=== PATIENT | male | born 1945 | race Caucasian/White ===

== ENCOUNTER 2018-02-15 12:42 | Emergency (ER) | payer MEDICARE ==
[2018-02-15 12:53] VITALS: PULSE 63; RESP 20; TEMP 97.7
[2018-02-15] MEDS ORDERED: LORazepam 1 MG TAB PO STA (13:08)
--- NOTE | 2018-02-15 13:13 | ED ---
General Adult HPI - General Chief complaint: Recheck/Abnormal Lab/Rx Stated complaint: elevated BP Source: patient Mode of arrival: ambulatory Limitations: no limitations - History of Present Illness Initial comments: Dictation was produced using [employer] dictation software. please excuse any grammatical, word or spelling errors. Chief Complaint: 72-year-old male with past medical history of atrial fibrillation status post ablation, diabetes mellitus and hypertension since with elevated blood pressure. History of Present Illness: 72-year-old male presents with elevated blood pressure. Patient states he was checking his blood pressure with his personal machine when it was elevated with systolic of 190s. He then went to the [facility] and check the he was sent in here by the [facility] medical staff to be evaluated. Patient has past medical history of hypertension. He takes lisinopril and metoprolol. She denies any shortness of breath. Denies any headache. Denies any pain complaints. Denies any neurologic symptoms. The ROS documented in this emergency department record has been reviewed and confirmed by me. Those systems with pertinent positive or negative responses have been documented in the HPI. All other systems are other negative and/or noncontributory. - Related Data Allergies Allergy/AdvReac Type Severity Reaction Status Date / Time amiodarone Allergy Unknown Verified 02/15/18 12:47 metformin Allergy Unknown Verified 02/15/18 12:47 Review of Systems ROS Statement: Those systems with pertinent positive or pertinent negative responses have been documented in the HPI. ROS Other: All systems not noted in ROS Statement are negative. Past Medical History Past Medical History: Atrial Fibrillation, Chest Pain / Angina, Diabetes Mellitus, Hypertension Additional Past Medical History / Comment(s): prostate cancer History of Any Multi-Drug Resistant Organisms: None Reported Past Surgical History: Heart Catheterization Additional Past Surgical History / Comment(s): cardiac ablation for A-fib, prostatectomy Past Psychological History: No Psychological Hx Reported Smoking Status: Former smoker Past Alcohol Use History: Daily Past Drug Use History: None Reported General Exam - General Exam Comments Initial Comments: PHYSICAL EXAM: General Impression: Alert and oriented x3, not in acute distress HEENT: Normocephalic atraumatic, extra-ocular movements intact, pupils equal and reactive to light bilaterally, mucous membranes moist. Cardiovascular: Heart regular rate and rhythm, S1&S2 audible, no murmurs, rubs or gallops Chest: Lungs clear to auscultation bilaterally, no rhonchi, no wheeze, no rales Abdomen: Bowel sounds present, abdomen soft, non-tender, non-distended, no organomegaly Musculoskeletal: Pulses present and equal in all extremities, no peripheral edema Motor: Power 5/5 bilaterally, no focal deficits noted Neurological: CN II-XII grossly intact, no focal motor or sensory deficits noted Skin: Intact with no visualized rashes Psych: Normal affect and mood Limitations: no limitations Course Vital Signs 02/15/18 02/15/18 12:47 14:02 Temperature 97.7 F Pulse Rate 63 Respiratory 20 Rate Blood Pressure 206/99 174/82 O2 Sat by Pulse 98 Oximetry Medical Decision Making - Medical Decision Making ED course: 72-year-old male presents with elevated blood pressure. Vital signs upon arrival shows blood pressure 206/99, worse vital signs within normal limits. Physical examination is benign. Patient appears slightly anxious. At this point patient's elevated blood pressure is asymptomatic. No clinical findings or history to suggest hypertensive urgency or emergency. Patient reports that his blood pressure is normally and assessed Bolick of 130 140 range. Patient states he does not remember when his blood pressure was as high. Patient was last seen by his radio producer or his lisinopril dose was increased from 2-1/2 mg daily to 5 mg daily.Metabolic panel obtained. Creatinine 0.65. Rest of metabolic panel is unremarkable. Repeat blood pressure shows improvement to 174 systolic. Chest x-ray shows no acute processes. Patient given 1 mg of Ativan. Discussed with patient that no indication to aggressively treat his blood pressure at this time. Discussed the patient that he should return to the emergency department should he develop any neurologic symptoms, chest pain, shortness of breath or headache. He is instructed to call his radio producer or primary care physician tomorrow for possible adjustment of his blood pressure medication. Patient is understandable and agreeable at this time. Final impression: 1. asymptomatic hypertension EKG Interpretation: A 12 lead EKG was obtained. It was interpreted by myself and attending physician. There is a P wave before every QRS complex. Rate is [default value]. Rhythm is [default value]. QT is not prolonged. No ST segment depression or elevation. This EKG was compared to a previous EKG that was obtained on [ default value] and showed no significant change. Overall, this EKG is unremarkable - Lab Data Result diagrams: 02/15/18 13:30 Lab Results 02/15/18 Range/Units 13:30 Sodium 141 (137-145) mmol/L Potassium 4.1 (3.5-5.1) mmol/L Chloride 105 (98-107) mmol/L Carbon Dioxide 27 (22-30) mmol/L Anion Gap 9 mmol/L BUN 13 (9-20) mg/dL Creatinine 0.65 L (0.66-1.25) mg/dL Est GFR (CKD-EPI)AfAm >90 (>60 ml/min/1.73 sqM) Est GFR (CKD-EPI)NonAf >90 (>60 ml/min/1.73 sqM) Glucose 99 (74-99) mg/dL Calcium 9.5 (8.4-10.2) mg/dL Disposition Clinical Impression: Hypertension Disposition: HOME SELF-CARE Condition: Fair Instructions: Hypertension (ED) Additional Instructions: call radio producer for possible blood pressure medication adjustment Is patient prescribed a controlled substance at d/c from ED?: No Referrals: Nonstaff,Physician [Primary Care Provider] - 1-2 days Time of Disposition: 14:06
[2018-02-15 13:55] LABS: Anion Gap 9 mmol/L; Blood Urea Nitrogen 13 mg/dL (9-20); Calcium 9.5 mg/dL (8.4-10.2); Carbon Dioxide 27 mmol/L (22-30); Chloride 105 mmol/L (98-107); Glucose 99 mg/dL (74-99); Potassium 4.1 mmol/L (3.5-5.1); Sodium 141 mmol/L (137-145)
--- NOTE | 2018-02-15 13:57 | XR ---
EXAMINATION TYPE: XR chest 2V DATE OF EXAM: 02/15/2018 HISTORY: Pain. REFERENCE: NONE. FINDINGS: There is some scarring or atelectasis at the left lung base. The lungs are otherwise clear. Pleural space are clear. The heart is not enlarged. IMPRESSION: SCARRING VERSUS ATELECTASIS, LEFT LUNG BASE.
[2018-02-15 14:21] VITALS: BP 167/78
== END 2018-02-15 14:15 | disposition home or self-care (01) ==
LOC: EC 12:42
DX: I10 Essential (primary) hypertension (principal); Z87.891 Personal history of nicotine dependence; Z88.8 Allergy status to other drugs, medicaments and biological substances; Z85.46 Personal history of malignant neoplasm of prostate; Z95.9 Presence of cardiac and vascular implant and graft, unspecified; Z98.890 Other specified postprocedural states; Z90.79 Acquired absence of other genital organ(s)
CPT/HCPCS: 36415; 71046; 80048; 93005; 99284